=== PATIENT | female | born 1975 | race Caucasian/White ===

== ENCOUNTER 2018-03-04 21:42 | Emergency (ER) | payer OTHER ==
[2018-03-04] MEDS: morphine 4 MG/ML VIAL IV (23:19)
[2018-03-04] MEDS: SOD CHLORIDE 0.9% 1,000 ML IV (23:19)
[2018-03-04] MEDS: ONDANSETRON 4 MG INJ IV (23:19)
[2018-03-05 00:06] LABS: ADD MAN DIFF? NO
[2018-03-05 00:07] LABS: WHITE BLOOD COUNT 10.8 10^3/ul (4.8-10.8)
[2018-03-05 00:07] LABS: BASOPHIL # 0.1 10^3/ul (0.0-0.1); BASOPHILS % 0.5 % (0.0-2.0); EOSINOPHILS # 0.1 10^3/ul (0.0-0.5); EOSINOPHILS % 0.9 % (0.0-7.0); HEMATOCRIT 36.2 % (37.0-47.0); HEMOGLOBIN 12.4 g/dl (12.0-16.0); IMMATURE GRANS #M 0.03 10^3/ul; IMMATURE GRANS % (M) 0.3 %; LYMPHOCYTES % 18.6 % (15.0-51.0); MEAN CORPUSCULAR HEMOGLOBIN 30.2 pg (29.0-33.0); MEAN CORPUSCULAR HGB CONC 34.3 g/dl (32.0-37.0); MEAN CORPUSCULAR VOLUME 88.3 fl (82.0-101.0); MEAN PLATELET VOLUME 10.4 fl (7.4-10.4); MONOCYTE # 0.6 10^3/ul (0.3-0.9); MONOCYTES % 5.9 % (0.0-11.0); NEUTROPHILS % 73.8 % (39.0-77.0); PLATELET COUNT 381 10^3/UL (140-415); RED CELL DISTRIBUTION WIDTH 12.4 % (11.5-14.5)
[2018-03-05 00:28] LABS: ADD UMIC YES; UR ASCORBIC ACID NEGATIVE (NEGATIVE); UR BILIRUBIN (Dip) NEGATIVE (NEGATIVE); UR BLOOD (Dip) 2+ mg/dL (NEGATIVE); UR CLARITY CLEAR (CLEAR); UR COLOR YELLOW (YELLOW); UR GLUCOSE (Dip) NEGATIVE (NEGATIVE); UR KETONES (Dip) NEGATIVE (NEGATIVE); UR LEUKOCYTE ESTERASE (Dip) NEGATIVE Leu/ul (NEGATIVE); UR MUCUS FEW /HPF (NONE SEEN); UR NITRITE (Dip) NEGATIVE (NEGATIVE); UR RBC 4 /HPF (0-5); UR SPECIFIC GRAVITY (Dip) 1.013 (1.003-1.030); UR SQUAMOUS EPITHELIAL CELL FEW /HPF (FEW); UR TOTAL PROTEIN (Dip) NEGATIVE (NEGATIVE); UR UROBILINOGEN (Dip) NEGATIVE (NEGATIVE); UR WBC 3 /HPF (0-5)
[2018-03-05 00:31] LABS: ALBUMIN 4.2 g/dl (3.3-4.9); ALKALINE PHOSPHATASE 87 IU/L (42-121); ANION GAP 13 (8-16); ASPARTATE AMINO TRANSFERASE 17 IU/L (15-46); BILIRUBIN,INDIRECT 0.9 mg/dl (0-1.1); BILIRUBIN,TOTAL 0.9 mg/dl (0.2-1.3); BLOOD UREA NITROGEN 15 mg/dl (7-20); CALCIUM 9.3 mg/dl (8.4-10.2); CARBON DIOXIDE 25 mmol/L (21-31); CHLORIDE 107 mmol/L (97-110); CREATININE 0.78 mg/dl (0.44-1.00); GLUCOSE 101 mg/dl (70-220); LIPASE 102 U/L (23-300); POTASSIUM 3.5 mmol/L (3.5-5.1); SODIUM 141 mmol/L (135-144); TOTAL PROTEIN 8.4 g/dl (6.1-8.1)
[2018-03-05 00:38] LABS: ALANINE AMINOTRANSFERASE < 6 IU/L (13-69)
== END 2018-03-05 02:28 | disposition home or self-care (01) ==
LOC: FTE 21:42
DX: N23 Unspecified renal colic (principal)
CPT/HCPCS: 36415; 74176; 80053; 81001; 81025; 83690; 84702; 84703; 85025; 96374; 96375; 99285-25